=== PATIENT | male | born 1985 | race Caucasian/White ===

== ENCOUNTER 2021-12-09 11:10 | Day surgery (SDC) | payer OTHER ==
[2021-12-09] MEDS ORDERED: Bacitracin Zinc Ointment 30 gm TUBE ONE (12:34)
[2021-12-09] MEDS ORDERED: Thrombin 5000 UNITS/5 ML VIAL ONE (12:34)
[2021-12-09] MEDS ORDERED: Bupivacaine 0.25% 10 ML VIAL ONE (12:34)
[2021-12-09] MEDS ORDERED: Mineral Oil Sterile 10 ML VIAL ONE (12:34)
[2021-12-09] MEDS ORDERED: Neomycin-Polymyxin 1 ML AMP ONE (12:34)
[2021-12-09] MEDS ORDERED: HYDROmorphone 0.5 MG/0.5 ML SYRINGE ONE (13:18)
[2021-12-09] MEDS ORDERED: ceFAZolin (BATCH) 2 GM/100 ML BAG ONE (13:55)
[2021-12-09] MEDS ORDERED: PROPOFOL 200 MG/20 ML VIAL ONE (14:02)
[2021-12-09] MEDS ORDERED: Ketorolac Tromethamine 30 MG/ML VIAL ONE (14:02)
[2021-12-09] MEDS ORDERED: ePHEDrine 50 MG/ML VIAL ONE (14:02)
[2021-12-09] MEDS ORDERED: Lidocaine 1% PF 5 ML VIAL ONE (14:02)
[2021-12-09] MEDS ORDERED: Dexamethasone 20 MG/5 ML VIAL ONE (14:02)
[2021-12-09] MEDS ORDERED: Ondansetron PF 4 MG/2 ML Vial ONE (14:02)
[2021-12-09] MEDS ORDERED: Fentanyl 100 MCG/2 ML VIAL ONE (15:45)
== END 2021-12-09 17:15 | disposition home or self-care (01) ==
LOC: SDC 11:10
PROVIDERS: ATTEND Orthopaedic Surgery Hand Surgery
PROC: 0HRGX73 Replacement of Left Hand Skin with Autologous Tissue Substitute, Full Thickness, External Approach (ICD-10-PCS; principal; 2021-12-09)
DX: S61.032A Puncture wound without foreign body of left thumb without damage to nail, initial encounter (principal); Z87.891 Personal history of nicotine dependence; Z79.2 Long term (current) use of antibiotics; Z88.0 Allergy status to penicillin; Z91.041 Radiographic dye allergy status; W34.00XA Accidental discharge from unspecified firearms or gun, initial encounter
CPT/HCPCS: J0690; J1100; J1170; J1885; J2405; J2704; J3010; J3490; S0020